=== PATIENT | male | born 1995 | race Caucasian/White ===

== ENCOUNTER 2016-11-16 20:50 | Emergency (ER) | payer BC, OTHER ==
[~2016-11-16] VITALS: Ht 190.5 cm; Wt 100.2 kg
[2016-11-16 20:52] VITALS: TEMP 36.9; Ht 190.5 cm; Wt 100.2 kg
[2016-11-16] MEDS ORDERED: ACETAMINOPHEN 500 MG TAB PO STA (21:12)
[2016-11-16 21:23] VITALS: BP 165/97; PULSE 102; O2SAT 95
[2016-11-16] MEDS ORDERED: NUTRPAK70 PO (21:23)
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
== END 2016-11-16 21:23 | disposition home or self-care (01) ==
LOC: C.EDB 20:52 → C.EDD 21:23
DX: S16.1XXA Strain of muscle, fascia and tendon at neck level, initial encounter (principal); V43.52XA Car driver injured in collision with other type car in traffic accident, initial encounter; F17.200 Nicotine dependence, unspecified, uncomplicated; Z88.0 Allergy status to penicillin; Z88.5 Allergy status to narcotic agent; Z88.6 Allergy status to analgesic agent; Z88.8 Allergy status to other drugs, medicaments and biological substances

== ENCOUNTER 2017-04-10 22:28 | Emergency (ER) | payer BC, OTHER ==
[~2017-04-10 22:28] MED LIST: NUTRPAK70 PO
[2017-04-10 22:32] VITALS: TEMP 36.6
[2017-04-10] MEDS ORDERED: PRED10TA PO (23:21)
[2017-04-10 23:34] LABS: URINE APPEARANCE CLEAR (CLEAR); URINE BILIRUBIN NEG (NEG); URINE COLOR YELLOW; URINE NITRITE NEG (NEG); URINE PH 8.5 (4.5-7.5); URINE SPECIFIC GRAVITY 1.022 (1.000-1.030); UROBILINOGEN NEG (NEG); ZZUR CULT IF INDIC CLEAN CATCH NO
[2017-04-10 23:41] LABS: MANUAL MICROSCOPIC REQUIRED? NO; REVIEW REQ? NO
[2017-04-10 23:43] LABS: BASO % 0.1 %; BASO ABS # 0.01 K/uL (0-0.2); COMPLETE YES; EOS % 0.3 %; HEMATOCRIT 47.5 % (42-52); IG% 0.3 %; LYMPH % 14.6 %; LYMPH ABS # 1.59 K/uL (1.2-3.4); MEAN CELL VOLUME 88.1 fL (80-100); MEAN CORPUSCULAR HEMOGLOBIN 30.2 pg (25-34); MEAN CORPUSCULAR HGB CONC 34.3 g/dl (32-36); MEAN PLATELET VOLUME 10.6 fL (7.4-10.4); MONO % 6.6 %; NEUT % 78.1 %; PLATELET COUNT 243 K/uL (130-400); RED BLOOD COUNT 5.39 M/uL (4.7-6.1); WHITE BLOOD COUNT 10.87 K/uL (4.8-10.8)
[2017-04-11 00:07] LABS: BLOOD UREA NITROGEN 15 mg/dl (7-18); BUN/CREATININE RATIO 15.3 (10-20); CALCIUM 9.1 mg/dl (8.5-10.1); CARBON DIOXIDE 25 mmol/L (21-32); CHLORIDE 105 mmol/L (98-107); CREATININE 0.99 mg/dl (0.60-1.40); GLUCOSE 122 mg/dl (70-99); SODIUM 137 mmol/L (136-145)
[2017-04-11] MEDS ORDERED: CEFTRIAXONE SOD 350MG/ML 1 GM VIAL IM STA (01:14)
[2017-04-11] MEDS ORDERED: DOXYCYCLINE HYCLATE 100 MG CAP PO ONE (01:15)
[2017-04-11] MEDS ORDERED: DOXY100C2 PO (01:20)
--- NOTE | 2017-04-11 01:47 | EMERGENCY ROOM VISIT NOTE ---
History First contact with patient: 22:42 Chief Complaint: GROIN PAIN Stated Complaint: REACTION TO PREDNISONE,SORE GROIN History of Present Illness The patient is a 21 year old male who presents to the Emergency Room with complaints of bilateral groin and testicular discomfort for the past few days after taking prednisone. Patient is given prednisone for possible scabies urgent care. I am unsure why they did this and I asked the patient and he states this is likely gave him along with a cream. Patient states he masturbates a lot also. He describes the discomfort as throbbing, ranging in severity worse with urination and better with rest. Patient states occasionally has rashes to his penis but none present. Patient denies chest pain, dyspnea, penile discharge, penile pain, testicular masses, abdominal pain , back pain, fever, chills. Review of Systems See HPI for pertinent positives & negatives. A total of 10 systems reviewed and were otherwise negative. Past Medical/Surgical History Medical Problems: (1) no chronic medical history Family History No pertinent family history Social History Smoking Status: Current Every Day Smoker Alcohol Use: none Marital Status: in relationship Housing Status: lives alone Occupation Status: [employer] Current/Historical Medications Scheduled Doxycycline Hyclate (Vibramycin), 100 MG PO BID Prednisone Tab (Prednisone), 10 MG PO QID Allergies Coded Allergies: Aripiprazole (Verified Allergy, Severe, STIFF NECK, 04/10/17) Penicillins (Verified Allergy, Unknown, RASH, 04/10/17) Acetaminophen (Verified Adverse Reaction, Unknown, NAUSEA, 04/10/17) Codeine (Verified Adverse Reaction, Unknown, VOMITTING, 04/10/17) Physical Exam Vital Signs Date Time Temp Pulse Resp B/P (MAP) Pulse Ox O2 Delivery O2 Flow Rate FiO2 04/11/17 00:30 79 18 136/81 98 Room Air 04/10/17 22:32 36.6 99 18 156/88 98 Room Air Physical Exam VITALS: Vitals are noted on the nurse's note and reviewed by myself. Vital signs stable. GENERAL: Pleasant male, in no acute distress, nondiaphoretic, well-developed well-nourished. SKIN: The skin was without rashes, erythema, edema, or bruising. There is no tenting of the skin. Capillary reflex less than 2 seconds. HEAD: Normocephalic atraumatic. EARS: External auditory canals clear, tympanic membranes pearly pisano without erythema or effusion bilaterally. EYES: Pupils equal round and reactive to light and accommodation. Conjunctivae without injection, sclerae without icterus. Extraocular movements intact. NOSE: Patent, turbinates without inflammation or discharge. MOUTH: Mucous membranes moist. Pharynx without erythema or exudate. Uvula midline. Airway patent. Tongue does not deviate. NECK: Supple without nuchal rigidity. No lymphadenopathy. No thyromegaly. Cervical spine is nontender. No JVD. HEART: Regular rate and rhythm without murmurs gallops or rubs. LUNGS: Clear to auscultation bilaterally without wheezes, rales or rhonchi. No dullness to percussion. No retractions or accessory muscle use. ABDOMEN: Positive bowel sounds x 4. Normal tympanic percussion. Soft, nontender, without masses or organomegaly. Teague sign negative. No guarding or rebound tenderness. No CVA tenderness exam: Bilateral inguinal lymph node enlargement that is tender to palpation with bilateral testicle slightly tender to palpation with no rashes present cultures taken and sent with nurse present. No penile discharge or rashes appreciated. MUSCULOSKELETAL: No muscle atrophy, erythema, or edema noted. NEURO: Patient was alert and oriented to person place and time. Normal sensation to light and sharp touch. No focal neurological deficits. Medical Decision & Procedures Laboratory Results 04/10/17 23:37 Red Blood Count 5.39, Mean Corpuscular Volume 88.1, Mean Corpuscular Hemoglobin 30.2, Mean Corpuscular Hemoglobin Concent 34.3, Mean Platelet Volume 10.6, Neutrophils (%) (Auto) 78.1, Lymphocytes (%) (Auto) 14.6, Monocytes (%) (Auto) 6.6, Eosinophils (%) (Auto) 0.3, Basophils (%) (Auto) 0.1, Neutrophils # (Auto) 8.49, Lymphocytes # (Auto) 1.59, Monocytes # (Auto) 0.72, Eosinophils # (Auto) 0.03, Basophils # (Auto) 0.01 04/10/17 23:37 Test 04/10/17 23:00 04/10/17 23:37 04/11/17 01:11 Urine Color YELLOW Urine Appearance CLEAR (CLEAR) Urine pH 8.5 (4.5-7.5) Urine Specific [place] 1.022 (1.000-1.030) Urine Protein NEG (NEG) Urine Glucose (UA) NEG (NEG) Urine Ketones NEG (NEG) Urine Occult Blood NEG (NEG) Urine Nitrite NEG (NEG) Urine Bilirubin NEG (NEG) Urine Urobilinogen NEG (NEG) Urine Leukocyte Esterase NEG (NEG) White Blood Count 10.87 K/uL (4.8-10.8) Red Blood Count 5.39 M/uL (4.7-6.1) Hemoglobin 16.3 g/dL (14.0-18.0) Hematocrit 47.5 % (42-52) Mean Corpuscular Volume 88.1 fL (80-100) Mean Corpuscular Hemoglobin 30.2 pg (25-34) Mean Corpuscular Hemoglobin Concent 34.3 g/dl (32-36) Platelet Count 243 K/uL (130-400) Mean Platelet Volume 10.6 fL (7.4-10.4) Neutrophils (%) (Auto) 78.1 % Lymphocytes (%) (Auto) 14.6 % Monocytes (%) (Auto) 6.6 % Eosinophils (%) (Auto) 0.3 % Basophils (%) (Auto) 0.1 % Neutrophils # (Auto) 8.49 K/uL (1.4-6.5) Lymphocytes # (Auto) 1.59 K/uL (1.2-3.4) Monocytes # (Auto) 0.72 K/uL (0.11-0.59) Eosinophils # (Auto) 0.03 K/uL (0-0.5) Basophils # (Auto) 0.01 K/uL (0-0.2) RDW Standard Deviation 41.2 fL (36.4-46.3) RDW Coefficient of Variation 12.8 % (11.5-14.5) Immature Granulocyte % (Auto) 0.3 % Immature Granulocyte # (Auto) 0.03 K/uL (0.00-0.02) Anion Gap 7.0 mmol/L (3-11) Estimated GFR () 125.7 Estimated GFR (Non- 108.4 BUN/Creatinine Ratio 15.3 (10-20) Calcium Level 9.1 mg/dl (8.5-10.1) Medications Administered Medications (Trade) Dose Ordered Sig/Zenia Route Start Time Stop Time Status Last Admin Dose Admin Ceftriaxone Sodium (Rocephin Im) 250 mg NOW STAT IM 04/11/17 01:14 04/11/17 01:15 DC 04/11/17 01:29 250 MG Doxycycline Hyclate (Vibramycin Cap) 100 mg ONE ONCE PO 04/11/17 01:15 04/11/17 01:16 DC 04/11/17 01:29 100 MG ED Course Prior records/ancillary studies reviewed. Triage Nursing notes reviewed. The patient's history was concerning for groin pain and testicular discomfort. Differential diagnosis: Etiologies such as STI, epididymitis, viral infection, strain, sprain, infection, as well as others were entertained. Physical examination findings: As above. ER treatment provided: Rocephin, doxycycline On reassessment the patient felt better. Diagnostics interpreted by me: The labs revealed mild leukocytosis. GC chlamydia pending negative urine Imaging studies: Ultrasound was negative for epididymitis per radiology Exam and history seem consistent with groin discomfort with lymphadenopathy. Patient was started on antibiotic to possible STI. He was advised to abstain from intercourse until these results are reviewed. He denied any risk factors for STIs. Patient was neurovascular and neurologically intact. He did not have acute abdomen on exam. He was well-appearing. He was advised to follow- up family care in a few days or here in the ER sooner for abdominal pain, fevers , genitalia problems, worsening signs or symptoms or as needed. By the evaluation outlined above emergent etiologies such as UTI, renal colic , as well as others were deemed relatively unlikely. The pt informed about the findings as listed above. All questions were answered and pleased with the treatment. Return instructions were outlined and the patient was discharged in stable condition. Outpatient prescription management: Doxycycline Referral: The patient was referred back to their primary care physician for follow-up in 2 to 3 days for a recheck of the current condition. Case reviewed with my attending Medical Decision As above Impression Primary Impression: Lymphadenopathy, inguinal Additional Impression: Bilateral groin pain Departure Information Dispostion Home / Self-Care Condition GOOD Prescriptions Doxycycline Hyclate (VIBRAMYCIN) 100 Mg Cap 100 MG PO BID for 10 Days, #20 CAP Prov: Dara Dalton PA-C 04/11/17 Referrals No Doctor, Assigned (PCP) Forms WORK / SCHOOL INSTRUCTIONS, HOME CARE DOCUMENTATION FORM, IMPORTANT VISIT INFORMATION Patient Instructions My [facility] Additional Instructions No intercourse until you have reviewed your culture results. Doxycycline 100mg: Take one pill twice daily for 10 days for your infection. Take with food, but avoid dairy. Avoid prolonged sun exposure since this medication makes you temporarily more susceptible to sunburns. All antibiotics can cause diarrhea. If this occurs and you feel worse or it does not resolve in 1-2 days follow up with your doctor or return to the Emergency Department as this could be signs of serious underlying problems. Any medication can cause an allergic reaction, stop the pills immediately and return to the ER for rash, hives, breathing difficulties, or swelling. Acetaminophen(Tylenol) may be used for fever or pain. Use 1000mg every six hours as needed. Avoid using more than 3000mg in a 24 hour period. AND/OR Ibuprofen(Motrin, Advil) may be used for fever or pain. Use 600mg every six hours as needed. Take with food. Avoid using more than 2400mg in a 24 hour period. Do not use 2400mg per day for more than three consecutive days without physician direction. Prolonged inappropriate use can lead to stomach upset or ulcers. Rest and drink plenty of fluids. Avoid strenuous activity until your symptoms resolve and your breathing returns to normal. Continue current medications. Return to the ER for testicular pain, abdominal pain, chest pain, difficulty breathing, persistent fevers, vomiting, worsening of your condition, or as needed. Follow-up with family care in 3-4 days for culture results or call back to the ER. Problem Qualifiers
[2017-04-11 01:55] VITALS: BP 124/80; PULSE 78; O2SAT 98
--- NOTE | 2017-04-11 07:18 | DIAGNOSTIC IMAGING REPORT ---
ULTRASOUND TESTES AND SCROTUM CLINICAL HISTORY: Bilateral testicular pain. COMPARISON STUDY: No priors. TECHNIQUE: Real-time, grayscale, and color Doppler sonography of the testes and scrotum is performed. Images are reviewed in the transverse and longitudinal planes. FINDINGS: The testes are normal in size and homogeneous in echotexture. The right testis measures 5.4 x 2.6 x 3.4 cm and the left testis measures 5.2 x 2.4 x 3.3 cm. No intratesticular mass is seen. Testicular blood flow is normal and symmetric. Normal Doppler waveforms are identified in both testes. The epididymal heads are normal in appearance. The right epididymal head measures 1.3 cm in length and the left epididymal head measures 1.1 cm in length. No varicocele or hydrocele is seen. IMPRESSION: Unremarkable sonographic assessment the testes and scrotum. Electronically signed by: Meir iKdd M.D. 04/11/2017 7:17 AM Dictated Date/Time: 04/11/2017 7:15 AM
[2017-04-12 15:23] LABS: CHLAMYDIA TRACH RNA*** NOT DETECTED (NOT DETECTED); GC (NEIS GONORRHOEAE)RNA** NOT DETECTED (NOT DETECTED)
== END 2017-04-11 01:58 | disposition home or self-care (01) ==
LOC: C.EDB 22:29
DX: R59.0 Localized enlarged lymph nodes (principal); R10.30 Lower abdominal pain, unspecified; N50.819 Testicular pain, unspecified; F17.200 Nicotine dependence, unspecified, uncomplicated

== ENCOUNTER 2017-04-12 00:28 | Emergency (ER) | payer BC ==
[~2017-04-12] VITALS: Ht 193 cm; Wt 102.3 kg
[~2017-04-12 00:28] MED LIST changes: +DOXY100C2 PO; -NUTRPAK70 PO; +PRED10TA PO
[2017-04-12 00:31] VITALS: Ht 193 cm; Wt 102.3 kg
[2017-04-12] MEDS ORDERED: AZITHROMYCIN 250 MG TAB PO ONE (00:45)
--- NOTE | 2017-04-12 00:47 | EMERGENCY ROOM VISIT NOTE ---
History Report prepared by Jose: Nikunj Weaver Under the Supervision of: Dr. Jamie Noriega D.O. First contact with patient: 00:36 Chief Complaint: ALLERGIC REACTION Stated Complaint: ITCHY SKIN,FEELING WEIRD History of Present Illness The patient is a 21 year old male who presents to the Emergency Room with complaints of a possible allergic reaction that began a couple of hours ago. He was seen in the ER yesterday secondary to a possible STD infection. He was give a dose of Doxycycline and sent home with more Doxycycline. He then took one another dose today 7 hours ago. He then became globally itchy. He denies any shortness of breath or noticeable rash. He did not take anything prior to arrival. He denies any more swollen lymph nodes. Source of History: patient Onset: a couple of hours ago Position: other (Global) Symptom Intensity: moderate Quality: other (Itching) Timing: worsening Associated Symptoms: No SOB, No rash Note: He denies any more lymph node swelling as well. Review of Systems See HPI for pertinent positives & negatives. A total of 10 systems reviewed and were otherwise negative. Past Medical & Surgical Medical Problems: (1) no chronic medical history Family History No pertinent family history Social History Smoking Status: Current Every Day Smoker Alcohol Use: none Drug Use: none Marital Status: in relationship Housing Status: lives alone Occupation Status: [employer] student Current/Historical Medications Scheduled Doxycycline Hyclate (Vibramycin), 100 MG PO BID Prednisone Tab (Prednisone), 10 MG PO QID Allergies Coded Allergies: Aripiprazole (Verified Allergy, Severe, STIFF NECK, 04/10/17) Penicillins (Verified Allergy, Unknown, RASH, 04/10/17) Acetaminophen (Verified Adverse Reaction, Unknown, NAUSEA, 04/10/17) Codeine (Verified Adverse Reaction, Unknown, VOMITTING, 04/10/17) Physical Exam Vital Signs Date Time Temp Pulse Resp B/P (MAP) Pulse Ox O2 Delivery O2 Flow Rate FiO2 04/12/17 00:31 36.7 85 16 135/71 97 Room Air Physical Exam CONSTITUTIONAL/VITAL SIGNS: Reviewed / noted above. GENERAL: Non-toxic in appearance. INTEGUMENTARY: Warm, dry, and [place]. HEAD: Normocephalic. EYES: without scleral icterus or trauma. ENT/OROPHARYNX: clear and moist. LYMPHADENOPATHY/NECK: Is supple without lymphadenopathy or meningismus. RESPIRATORY: Lungs clear and equal. CARDIOVASCULAR: Regular rate and rhythm. GI/ABDOMEN: Soft and nontender. No organomegaly or pulsatile mass. No rebound or guarding. Normal bowel sounds. EXTREMITIES: Warm and well perfused. BACK: No CVA tenderness. NEUROLOGICAL: Intact without focal deficits. PSYCHIATRIC: normal affect. MUSCULOSKELETAL: Normally developed with good muscle tone. Medical Decision & Procedures ED Course 0036: Previous medical records were reviewed. The patient was evaluated in room A2. A complete history and physical examination was performed. 0045: Zithromax Tab 1000 mg PO, Benadryl Cap 50 mg PO 0048: On reevaluation, the patient is resting. I discussed the results and findings with the patient. He verbalized agreement of the treatment plan. He was discharged home. Medical Decision Differential diagnosis: Etiologies such as allergic reaction, anaphylaxis, urticaria, Villasenor-Sha syndrome, toxic epidermal necrolysis, erythema multiforme, cellulitis, as well as others were entertained. 21-year-old male who presents to the ED with a chief complaint of itchiness. The patient was started on doxycycline yesterday for possible STD. He was taken this for 7 days. The patient states that he took 2 doses today and developed itching. He denies any hives or shortness of breath or other symptoms. His exam was normal. He does not have any hives or abnormal rashes. He reports just itchiness. The patient was given Benadryl by mouth. He is given Zithromax 1 g by mouth. He was told to discontinue doxycycline. He is felt to be stable for discharge. Impression Primary Impression: Urticaria Scribe Attestation The scribe's documentation has been prepared under my direction and personally reviewed by me in its entirety. I confirm that the note above accurately reflects all work, treatment, procedures, and medical decision making performed by me. Departure Information Dispostion Home / Self-Care Referrals No Doctor, Assigned (PCP) Forms HOME CARE DOCUMENTATION FORM, IMPORTANT VISIT INFORMATION Patient Instructions My [facility] Additional Instructions Discontinue doxycycline. Take Benadryl as needed for itching.
[2017-04-12 00:56] VITALS: BP 135/71; PULSE 85; TEMP 36.7; O2SAT 97
== END 2017-04-12 00:57 | disposition home or self-care (01) ==
LOC: C.EDB 00:30 → C.EDA 00:57
DX: L50.9 Urticaria, unspecified (principal); F17.200 Nicotine dependence, unspecified, uncomplicated; Z88.0 Allergy status to penicillin; Z88.5 Allergy status to narcotic agent; Z88.6 Allergy status to analgesic agent; Z88.8 Allergy status to other drugs, medicaments and biological substances